=== PATIENT | female | born 1950 | race Caucasian/White ===

== ENCOUNTER 2019-02-19 20:11 | Emergency (ER) | payer BC, MEDICARE ==
[~2019-02-19] VITALS: Ht 165.1 cm; Wt 58.6 kg
[~2019-02-19 20:11] MED LIST: ATOR20TA66 PO; CALC300T4 PO; CLOP75TA35 PO; COR3.125T PO; DIPH25TA18 PO; DOCU100C40 PO; FURO-150 PO; LISI2.5T2 PO; NICO-687 TD; NITR0.4T51 SL; PANT40TA4 PO; POTA10CA44 PO; ZES2.5T PO
[2019-02-19 20:40] LABS: BASOPHILS % (AUTO) 0.4 % (0-1); EOSINOPHILS # (AUTO) 0.3 X10'3 (0-0.9); EOSINOPHILS % (AUTO) 3.2 % (0-6); HEMATOCRIT 37.1 % (35.0-45.0); HEMOGLOBIN 12.4 g/dl (12.0-16.0); LYMPHOCYTES # (AUTO) 3.9 X10'3 (1.1-4.8); LYMPHOCYTES % (AUTO) 43.8 % (21-51); MEAN CORPUSCULAR HEMOGLOBIN 30.6 PG (27.0-31.0); MEAN CORPUSCULAR HGB CONC 33.5 g/dL (33.0-36.5); MEAN CORPUSCULAR VOLUME 91.4 FL (78-98); MEAN PLATELET VOLUME 7.6 FL (7.4-10.4); MONOCYTES # (AUTO) 0.9 X10'3 (0-0.9); MONOCYTES % (AUTO) 10.1 % (2-12); NEUTROPHILS # (AUTO) 3.8 X10'3 (1.8-7.7); NEUTROPHILS % (AUTO) 42.5 % (42-75); PLATELET COUNT 273 X10'3 (140-440); RED BLOOD COUNT 4.06 X10'6 (4.20-5.60); RED CELL DISTRIBUTION WIDTH 13.9 % (11.5-14.5); WHITE BLOOD COUNT 8.8 X10'3 (4.5-11.0)
[2019-02-19 20:55] LABS: ALANINE AMINOTRANSFERASE 24 U/L (12-78); ALBUMIN 3.8 G/DL (3.4-5.0); ALBUMIN/GLOBULIN RATIO 1.1 (1.1-1.5); ALKALINE PHOSPHATASE 66 IU/L (46-116); ANION GAP 14 (8-16); ASPARTATE AMINO TRANSFERASE 19 U/L (10-37); BILIRUBIN,TOTAL 0.1 MG/DL (0.1-1.0); BLOOD UREA NITROGEN 26 MG/DL (7-18); BUN/CREATININE RATIO 12.5 (6.6-38.0); CALCIUM 8.9 MG/DL (8.5-10.1); CHLORIDE 100 MMOL/L (99-107); CREATININE 2.08 MG/DL (0.40-0.90); GLUCOSE 93 MG/DL (70-104); POTASSIUM 4.3 MMOL/L (3.5-5.1); SODIUM 137 MMOL/L (135-145); TOTAL CARBON DIOXIDE 22.9 MMOL/L (24-32); TOTAL PROTEIN 7.4 G/DL (6.4-8.2); eGFR 24 ML/MIN
[2019-02-19 20:58] LABS: PARTIAL THROMBOPLASTIN TIME 25 SECONDS (22-32)
[2019-02-19] MEDS ORDERED: HYDR-3965 PO (21:23)
[2019-02-19] MEDS ORDERED: HYDROcodone/acetaminophen 5mg/325mg tablet PO ONE (21:25)
[2019-02-19 21:41] VITALS: BP 138/71
== END 2019-02-19 21:37 | disposition home or self-care (01) ==
LOC: ER 20:13
DX: R07.89 Other chest pain (principal); I11.0 Hypertensive heart disease with heart failure; I50.9 Heart failure, unspecified; J44.9 Chronic obstructive pulmonary disease, unspecified; Z87.11 Personal history of peptic ulcer disease; Z86.14 Personal history of Methicillin resistant Staphylococcus aureus infection; Z98.890 Other specified postprocedural states; Z79.899 Other long term (current) drug therapy
CPT/HCPCS: 36415; 71045; 80053; 84484; 85025; 85610; 85730; 93005; 99284

== ENCOUNTER 2024-04-29 10:10 | Day surgery (SDC) | payer MEDICARE ==
[~2024-04-29] VITALS: Ht 165.1 cm; Wt 61.8 kg
[~2024-04-29 10:10] MED LIST changes: +ASPI-1264 PO; -ATOR20TA66 PO; +ATOR40TA72 PO; -CALC300T4 PO; +CLOP75TA34 PO; -CLOP75TA35 PO; -COR3.125T PO; -DIPH25TA18 PO; -DOCU100C40 PO; -FURO-150 PO; -LISI2.5T2 PO; -NICO-687 TD; -NITR0.4T51 SL; -PANT40TA4 PO; +PANT40TA54 PO; -POTA10CA44 PO; -ZES2.5T PO
[2024-04-29 11:01] VITALS: BP 152/75; PULSE 73; RESP 18
[2024-04-29] MEDS ORDERED: simethicone 40mg/0.6ml oral drops 30ml ONE (12:00)
[2024-04-29] MEDS ORDERED: LIDOcaine 1% (10mg/ml) 2ml vial ONE (12:26)
[2024-04-29] MEDS ORDERED: propofol inj 20 ML IV ONE (12:26)
[2024-04-29 12:52] VITALS: BP 115/72; PULSE 87; RESP 16; O2SAT 94
[2024-04-29 12:55] VITALS: BP 123/77; PULSE 85; RESP 15; O2SAT 96
[2024-04-29 13:05] VITALS: BP 125/79; PULSE 86; RESP 15; O2SAT 94
[2024-04-29 13:15] VITALS: BP 137/83; PULSE 77; RESP 16; O2SAT 96
[2024-04-29 13:25] VITALS: BP 144/83; PULSE 82; RESP 16; O2SAT 96
== END 2024-04-29 13:35 | disposition home or self-care (01) ==
LOC: GI LAB 10:10
PROVIDERS: ATTEND Internal Medicine Gastroenterology
DX: D50.0 Iron deficiency anemia secondary to blood loss (chronic) (principal); K64.8 Other hemorrhoids; K44.9 Diaphragmatic hernia without obstruction or gangrene; K31.89 Other diseases of stomach and duodenum; I25.119 Atherosclerotic heart disease of native coronary artery with unspecified angina pectoris; N18.30 Chronic kidney disease, stage 3 unspecified; K21.9 Gastro-esophageal reflux disease without esophagitis; E78.5 Hyperlipidemia, unspecified; I25.2 Old myocardial infarction; F41.9 Anxiety disorder, unspecified; Z87.891 Personal history of nicotine dependence; Z79.02 Long term (current) use of antithrombotics/antiplatelets; Z79.82 Long term (current) use of aspirin; Z79.899 Other long term (current) drug therapy; Z98.891 History of uterine scar from previous surgery
CPT/HCPCS: 43239; 45378; A4620; J2003; J2704; J7030; Z7512